=== PATIENT | male | born 1935 | race Caucasian/White ===

== ENCOUNTER 2017-01-24 00:54 | Emergency (ER) | payer OTHER ==
[~2017-01-24] VITALS: Ht 177.8 cm; Wt 82.0 kg
[~2017-01-24 00:54] MED LIST: DONE5TAB7 PO; FINA5TAB2 PO; GLYB5TAB3 PO; LORA-373 PO; LOSA50TA PO; OMEP40CA2 PO
[2017-01-24 00:58] VITALS: O2SAT 68
--- NOTE | 2017-01-24 01:10 | PD ---
HPI Chief Complaint: code Time Seen by Provider: 01:05 Travel History International Travel<30 days: No Contact w/Intl Traveler<30days: No History of Present Illness HPI The patient is a 81-year-old male who presents to the emergency department via EMS as a active coded. The patient had a prehospital downtime of approximately 40-45 minutes. According to EMS the called the patient apparently was hallucinating and was short of breath. When EMS arrived the patient was not breathing and was in PA with a bradycardic rhythm. EMS intubated the patient with a 7.5 endotracheal tube and administered 8 mg total of epinephrine and approximately 70-80 mEq of sodium bicarbonate. EMS states they briefly had a return of spontaneous circulation but no blood pressure and then the patient with back into PEA. Upon arrival the patient is a GCS of 3, intubated, with no spontaneous respirations. No further information is obtainable from EMS. PFSH Past Medical History Dementia: Yes Diabetes: Yes GERD: Yes Hypertension: Yes Past Surgical History Other Surgery: Yes (Hernia) Social History Alcohol Use: No Tobacco Use: No Substance Use: No Allergies-Medications (Allergen,Severity, Reaction): Coded Allergies: penicillin G (Unverified Allergy, Unknown, 01/17/17) Reported Meds & Prescriptions Reported Meds & Active Scripts Active Reported Glyburide 5 Mg Tab 5 Mg PO DAILY Take with meals at the same time each day Lorazepam 0.5 Mg Tab 1-2 Tab PO HS Donepezil 5 Mg Tab 5 Mg PO HS Finasteride 5 Mg Tab 5 Mg PO DAILY Do not crush. Omeprazole 40 Mg Cap 40 Mg PO DAILY Losartan (Losartan Potassium) 50 Mg Tab 50 Mg PO DAILY Review of Systems ROS Limitations: Clinical Condition, Intubated Except as stated in HPI: all other systems reviewed are Neg Physical Exam Exam Limitations: Clinical Condition Narrative GENERAL: 81-year-old male who is intubated upon arrival. SKIN: Cool to the touch. HEAD: Atraumatic. Normocephalic. EYES: Pupils are 4 mm bilateral and fixed.. ENT: Endotracheal tube in place. NECK: Trachea midline. No JVD. CARDIOVASCULAR: No heart sounds. RESPIRATORY: Bilateral breath sounds via endotracheal tube with bag valve ventilation. GASTROINTESTINAL: Abdomen soft. MUSCULOSKELETAL: No obvious deformities. No clubbing. No cyanosis. No edema. NEUROLOGICAL: GCS of 3. PSYCHIATRIC: Unable to assess. MDM Medical Decision Making Medical Screen Exam Complete: Yes Emergency Medical Condition: Yes Medical Record Reviewed: Yes Differential Diagnosis Differential diagnosis includes STEMI, pulmonary embolism, arrhythmia, sudden , hyperkalemia, hypokalemia, tension pneumothorax, pericardial tamponade, sepsis. Narrative Course The patient had bilateral breath sounds the endotracheal tube and bag valve ventilation. The patient was moved over to a stretcher and CPR was resumed. The patient had a downtime of approximately 40 minutes prior to arrival. The patient was placed on cardiac telemetry monitoring and continuous pulse oximetry monitoring. Bedside ultrasound was performed which revealed no cardiac activity. The patient was pronounced at 12:58 AM. Critical Care Narrative Aggregate critical care time was 10 minutes. Time to perform other separately billable procedures was not included in the critical care time. My time did not include minutes spent treating any other patients simultaneously or on activities that did not directly contribute to the patient's treatment. The services I provided to this patient were to treat and/or prevent clinically significant deterioration that could result in: Arrhythmia, aspiration, . I provided critical care services requiring my management, as noted below: Chart data review, documentation time, medication orders and management, vital sign assessments/reviewing monitor data, ordering and reviewing lab tests, ordering and interpreting/reviewing x-rays and diagnostic studies, care of the patient and discussion of the patient with the admitting physicians. Diagnosis Primary Impression: Cardiopulmonary arrest Disposition: 20 Condition: Dru Matthews MD Jan 24, 2017 01:10
== END 2017-01-24 03:00 | disposition expired ==
LOC: NEPE 00:54 → NEPI 03:00
DX: I46.9 Cardiac arrest, cause unspecified (principal); I10 Essential (primary) hypertension; E11.9 Type 2 diabetes mellitus without complications; K21.9 Gastro-esophageal reflux disease without esophagitis; F03.90 Unspecified dementia, unspecified severity, without behavioral disturbance, psychotic disturbance, mood disturbance, and anxiety
CPT/HCPCS: 99285